=== PATIENT | male | born 1965 | race Caucasian/White ===

== ENCOUNTER → 2017-03-27 | Outpatient (CLI) | payer OTHER ==
[~2017-03-27] MED LIST: GADOBUTROL 10 ML VIAL IVP ONE; GLUCAGON,HUMAN RECOMBINANT 0.3 MG in SYRINGE 0.3 ML IVP ONE
== END ==
LOC: FIMAGING 11:41
PROVIDERS: ATTEND Physician Assistant
DX: K50.00 Crohn's disease of small intestine without complications (principal)
CPT/HCPCS: A9585; J1610

== ENCOUNTER → 2017-04-26 | Outpatient (CLI) | payer OTHER | LOC: FIMAGING 17:10 | PROVIDERS: ATTEND Physician Assistant | DX: I82.4Z2 Acute embolism and thrombosis of unspecified deep veins of left distal lower extremity (principal) ==

== ENCOUNTER → 2017-08-18 | Outpatient (CLI) | payer OTHER | LOC: FIMAGING 08:01 | PROVIDERS: ATTEND Family Medicine | DX: I82.890 Acute embolism and thrombosis of other specified veins (principal) ==

== ENCOUNTER → 2017-10-19 | Outpatient (CLI) | payer OTHER | LOC: FIMAGING 16:42 | PROVIDERS: ATTEND Family Medicine | DX: I82.5Z2 Chronic embolism and thrombosis of unspecified deep veins of left distal lower extremity (principal) ==